=== PATIENT | female | born 1995 | race Caucasian/White ===

== ENCOUNTER 2017-04-10 11:05 | Emergency (ER) | payer BC ==
[~2017-04-10] VITALS: Ht 177.8 cm; Wt 122.3 kg
[2017-04-10 11:11] VITALS: TEMP 36.9; Ht 177.8 cm; Wt 122.3 kg
[2017-04-10] MEDS ORDERED: BCPILLS PO (11:41)
[2017-04-10] MEDS ORDERED: METF500T PO (11:41)
[2017-04-10] MEDS ORDERED: XYLOCAINE 1%/SOD BICARB 20 ML VIAL INFIL ONE (11:45)
[2017-04-10 12:29] VITALS: BP 103/83; PULSE 64; O2SAT 98
--- NOTE | 2017-04-11 06:19 | EMERGENCY ROOM VISIT NOTE ---
ED Visit Note First contact with patient: 11:32 Chief Complaint: I cut my right wrist. History of Present Illness: Ms. Lantigua is a 21-year-old white female who ambulates into the ED accompanied by female friend complaining of a right wrist laceration. Patient reports less than an hour ago she was attempting tissue a bug away that was on a window. She hit the window, the window broke and she sustained a laceration over the medial aspect of the anterior wrist. She did control bleeding prior to arrival at the hospital but did not wash the wound. Associated with the wound she reports she has a stinging sensation in the area the laceration. She rates her discomfort 4/10. The pain is nonradiating. The pain worsens with palpation. She has not identified any alleviating factors related to the pain. She has not taken medications for pain prior to arrival at the hospital. She denies any associated symptoms including hand pain, finger pain, finger weakness/numbness/tingling. Review of Systems: As noted above in history of present illness. 8 body systems were reviewed and found to be negative as noted above. Past Medical History: Bronchitis, status post tonsillectomy. Current Medications: Glucophage, control. Allergies to Medications: Patient denies. Social History: Patient is [employer] student; she feels safe in her home environment; she admits to tobacco use and denies alcohol use. Tetanus Immunization Status: Patient reports up-to-date. Physical Examination: Vital Signs: Date Time Temp Pulse Resp B/P (MAP) Pulse Ox O2 Delivery O2 Flow Rate FiO2 04/10/17 12:29 64 16 103/83 98 Room Air 04/10/17 11:11 36.9 86 18 112/61 93 Room Air GENERAL: 21-year-old female in mild distress due to pain, nontoxic-appearing, afebrile and hemodynamically stable. NEUROLOGICAL: Awake, alert and oriented to person, place and time. Answering questions appropriately and following commands. SKIN: Warm, dry and pink. Right Wrist: Over the medial aspect of the right wrist just inferior to the hand patient has a J-shaped 4.2 cm full-thickness laceration. No active bleeding. RIGHT UPPER EXTREMITY: Soft tissue injury as noted above. No gross bony deformity. No tenderness in the elbow, forearm, wrist, hand/fingers. Full range of motion in flexion and extension of the elbow, pronation and supination of forearm, flexion, extension and radial and ulnar deviation of the wrist and flexion and extension of all fingers. Throughout the hand skin was warm and pink and capillary refill is brisk. Patient was able to distinguish light sensations through all dermatomes of the hands and fingers. ED Course: Patient is assessed as noted above. Wound Repair: Complexity: Basic Verbal consent was obtained after the risks and benefits were explained. The skin was prepped with betadine and a sterile field set. Wound edges of the wound was anesthetized with 3.1 ml buffered 1% lidocaine. The wound was explored for foreign bodies and none found. Copious irrigation was performed using sterile saline. With direct pressure the bleeding subsided. Debridement was not performed. The wound edges were approximated using 5-0 Ethilon with 8 simple interrupted sutures. Hemostasis and excellent approximation was achieved. Antibacterial ointment and a sterile dressing applied. No complications and the patient tolerated the procedure well. Patient was educated about tonight's findings and instructed on her treatment plan; she verbalizes understanding and agreement with this plan. Clinical Impression: Laceration of the right wrist. Disposition: Patient discharged home in stable condition; prior to departure he was reassessed and subjectively reported she was pain-free. Plan: Comfort measures, wound care, and signs of infection were discussed with the patient. Patient was encouraged to follow-up with [facility] or return to the ED for signs of infection and/or suture removal in 10-12 days.
== END 2017-04-10 12:41 | disposition home or self-care (01) ==
LOC: C.EDB 11:07 → C.EDD 12:41
DX: S61.511A Laceration without foreign body of right wrist, initial encounter (principal); W25.XXXA Contact with sharp glass, initial encounter; F17.200 Nicotine dependence, unspecified, uncomplicated